=== PATIENT | female | born 1970 | race American Indian/Alaskan Native ===

== ENCOUNTER 2021-11-14 21:34 | Emergency (ER) | payer SELFPAY ==
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
[2021-11-15] MEDS ORDERED: CALCIUM CHLORIDE 1,000 MG/10 ML SYRINGE IV ONE (14:26)
[2021-11-15] MEDS ORDERED: EPINEPHrine 1 MG/10 ML SYRINGE ONE (14:26)
[2021-11-15] MEDS ORDERED: SODIUM BICARB 8.4% 50 MEQ/50 ML SYRINGE IV ONE (14:26)
[2021-11-15] MEDS ORDERED: ATROPINE 0.1% (1 MG/10 ML) CARDIAC SYRINGE ONE (14:26)
== END 2021-11-15 01:00 ==
LOC: EDSEX → EDBD → ED 21:34
DX: I46.9 Cardiac arrest, cause unspecified (principal)
CPT/HCPCS: 31500; 92950; 99285; J0171; J0461; J3490